=== PATIENT | female | born 1955 | race Caucasian/White ===

== ENCOUNTER → 2021-08-27 10:48 | Outpatient (CLI) | payer BC, SELFPAY ==
--- NOTE | 2021-08-27 10:54 | CT_ITS ---
STUDY: CT PELVIS WITH CONTRAST REASON FOR EXAM: Female, 65 years old. Left hip subcutaneous mass RADIATION DOSAGE (If Supplied By Facility): CTDIvol = ( 27.96 ) mGy, DLP = ( 1264.32 ) mGycm TECHNIQUE: Transaxial imaging of the pelvis was performed without oral contrast. IV 100mL Isovue-300 was administered intravenously. Multiplanar coronal and sagittal images were reformatted. Individualized dose optimization techniques were used for this CT. COMPARISON: None. FINDINGS: Faint calcific densities are seen within the muscles overlying the iliac wings bilaterally in a symmetrical fashion. This may represent the injection granulomas. Normal urinary bladder. Normal visualized small intestine. Normal visualized colon. There is no pelvic fluid. There is no pelvic lymphadenopathy or mass lesion. There is diffuse atherosclerotic calcification of the pelvic arteries. Normal abdominal wall. Normal osseous structures. CT/Pelvis WITH IV Contrast IMPRESSION: No mass lesion is seen. Findings suggestive of possible injection granulomas with calcification within the soft tissues overlying both iliac wings. Electronically Signed: Jordan Longo MD at 11:53 EDT , Service support ,
[2021-08-27 11:15] LABS: CREATININE FINGERSTICK 0.8 mg/dL (0.55-1.02); EGFR FINGERSTICK > 60.0000 mL/min (>60)
== END ==
PROVIDERS: Referring Provider Surgery; Visit Provider Surgery
DX: D48.9 Neoplasm of uncertain behavior, unspecified (principal)
CPT/HCPCS: 72193; Q9967